=== PATIENT | female | born 1950 ===

== ENCOUNTER 2018-04-14 12:40 | Inpatient (IN) | payer MEDICARE ==
[~2018-04-14] VITALS: Ht 170.2 cm; Wt 59.1 kg
--- NOTE | ~2018-04-14 | DS ---
PATIENT:GASTON MEZA :48 MEDICAL RECORD: [id number] DISCHARGE SUMMARY ADMISSION DATE: 04/14/18 DISCHARGE DATE: 04/15/18 IDENTIFYING DATA: The patient is 67 years old and she was admitted to the hospital on a voluntary basis because of depression. The patient came to the Emergency Room reporting thoughts of harming herself and was subsequently admitted for evaluation. HOSPITAL COURSE: The patient was admitted to the hospital and fully evaluated. She had a very strong family history of bipolar disorder. She was showing symptoms of stevan that are documented in her initial evaluation. She had not responded to numerous trials and combinations of antidepressant medications over the past 30 years. She had never tried to harm herself or others and had never lost contact with reality. She did have pressured speech and an increase in goal-directed activity. The patient was felt to be bipolar and was subsequently treated with lithium. She insisted upon being discharged and was not meeting criteria for an involuntary stay. She was not discharged against medical advice and a decision that was only slightly tilted in that direction. DISCHARGE DIAGNOSES: AXIS I: Bipolar disorder, mixed. AXIS II: Deferred. AXIS III: Hypercholesterolemia. AXIS IV: Moderate stressors. AXIS V: Global assessment of functioning is 55. PLAN: At the time of discharge, the patient was in good behavioral control and had no thoughts of harming herself or others. She was started on lithium with the instructions to have a followup appointment and lithium level with her primary care physician in 1 week. She was also given the names of 2 outpatient psychiatrists with whom I think she should followup. TRANSINT:[id number] Voice Confirmation ID: [id number] DOCUMENT ID: [id number] FIDELINA MONGE MD at 1438 CC: [id number] DICTATION DATE: 04/30/18 1347 SUPERVISOR ERECTION SHOP: 04/30/18 1354 DIS IN 04/15/18 [place] [address]
--- NOTE | ~2018-04-14 | PSY ---
PATIENT NAME:GASTON MEZA MEDICAL RECORD: [id number] : 48 [facility] ADMISSION DATE: 04/14/18 ACCOUNT: [id number] PSYCHIATRIC EVALUATION DATE OF EVALUATION: 04/15/18 IDENTIFYING DATA: The patient is 67 years old and she is admitted to the hospital on a voluntary basis. CHIEF COMPLAINT: Depression. HISTORY OF PRESENT ILLNESS: The patient presented to the Emergency Room yesterday reporting a lifelong history of depression and anxiety. She said that she was work and just simply could not take it anymore and was having some thoughts about killing herself. She even had a plan about how she would do it, which would be to hold a gun to her head and shoot herself. She later retracted that and said she really would not kill herself because she is "a Druze." She endorses numerous neurovegetative depressive symptoms, but then also has some symptoms of mild stevan, specifically not sleeping well and increase in goal-directed activity and inability to complete goals once she started them. 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 She also says that she does not even take a lunch break because she likes working so much. The impression was that it is not a financial necessity, is that she likes to work. She is an automobile insurance claim examiner and very upbeat, outgoing, and talks very rapidly. Again, these are symptoms of stevan in my opinion. She denies any overt psychotic symptoms as well as substance abuse issues. PAST MEDICAL HISTORY: Significant for hypercholesterolemia. PAST PSYCHIATRIC HISTORY: Significant for extensive outpatient treatment dating back several decades. She has been treated on an outpatient basis only and has never been treated on an inpatient basis. FAMILY HISTORY: Significant for bipolar disorder with the patient's mother, brother, and nephew all being institutionalized on multiple occasions and all carrying the diagnosis of bipolar disorder. ALLERGIES: CODEINE AND ERYTHROMYCIN. CURRENT MEDICATIONS: Include Pravachol and Celexa. SOCIAL HISTORY: The patient is . She has no children. She has a history of good social and occupational functioning. She has 3 degrees from [employer]. MENTAL STATUS EXAMINATION: The patient is awake, alert, and oriented to person, place, and somewhat to time and situation. Her mood is flat. Her affect is constricted. Thought processes are circumstantial. Memory, concentration, and abstraction abilities are mildly impaired and she denies any active intent to harm herself or others as well as psychotic symptoms. ASSETS: An ability to make her needs known and express her symptoms accurately. LIABILITIES: Limited insight. DIAGNOSTIC IMPRESSION: AXIS I: Bipolar disorder, mixed. AXIS II: Deferred. AXIS III: Hypercholesterolemia. AXIS IV: Moderate stressors. AXIS V: Global assessment of functioning is 50. PLAN: At this time, the patient is requesting discharge. I have advised her to stay in the hospital and allow me to treat her and better evaluate her symptoms, but she says that the patients on the unit are so ill that it is distressing to her and that she really wants to go home. I do not feel strongly enough about it to discharge her against medical advice and she would then be responsible for the hospital bill and she certainly does not meet current criteria for an involuntary stay, so I am going to let her go. I am going to start her on lithium empirically with the provisional diagnosis of bipolar disorder based on the very strong family history, the symptoms of a mixed bipolar state described above and the fact that no antidepressant medication has ever worked consistently. I think that this is reasonable clinical suspicion that she is bipolar and I am going to treat her with lithium. In addition to that, I am going to recommend that she see an outpatient psychiatrist, I have given her the names of 2 local psychiatrists and I have advised her if that is not feasible that she should go to [facility] where they would be more experienced with refractory cases that are nonresponsive to numerous pharmacologic interventions. The patient is agreeable to this plan. She denies that she would seek to harm herself and says that she will return to the Emergency Room if her symptoms worsen. Her primary care physician will follow up with her initially and I am asking for a lithium level in 1 week. I think the target goal for her lithium level is 0.8 mEq plus or minus 1 or 2 mEq. TRANSINT:[id number] Voice Confirmation ID: [id number] DOCUMENT ID: [id number] FIDELINA MONGE MD at 1650 CC: [id number] DICTATION DATE: 04/15/18 1521 PUBLISHING SPECIALIST: 04/15/18 1548 DIS IN 04/15/18 [facility] [address] [facility] [place] [address]
[2018-04-14] MEDS ORDERED: CELEXA10 MG PO (12:51)
[2018-04-14] MEDS ORDERED: PRAVACHOL20 MG PO (12:51)
[2018-04-14 13:41] LABS: BASOPHILS 0.3 % (0-2); EOSINOPHILS 2.6 % (0-7); HEMATOCRIT 41.9 % (36.0-48.0); HEMOGLOBIN 14.1 g/dL (12-16); IMMATURE GRANULOCYTES 0.2 % (0-5); MCH 31.5 pg (26.0-34.0); MCHC 33.7 g/dL (31.0-37.0); MCV 93.7 fL (80.0-100.0); MEAN PLATELET VOLUME 11.6 fL (7.4-10.4); MONOCYTES 5.2 % (2-11); NEUTROPHILS 62.7 % (40-80); PLATELET COUNT 163 10x3/uL (130-400); RBC 4.47 10x6/uL (4.00-5.40); RDW 12.8 % (11.5-14.5); WBC 6.1 10x3/uL (4.8-10.8)
[2018-04-14 13:56] LABS: ALBUMIN 3.7 g/dL (3.4-5.0); ALKALINE PHOSPHATASE 65 U/L (46-116); ALT (SGPT) 13 U/L (10-68); CALC OSMOLALITY 280 mosm/kg (275-300); CALCIUM 8.6 mg/dL (8.5-10.1); CARBON DIOXIDE 25.6 mmol/L (21.0-32.0); CHLORIDE - SERUM 108 mmol/L (98-107); CREATININE - SERUM 0.8 mg/dL (0.6-1.3); GLUCOSE 103 mg/dL (74-106); POTASSIUM - SERUM 4.2 mmol/L (3.5-5.1); PROTEIN - SERUM 6.5 g/dL (6.4-8.2); SODIUM 141 mmol/L (136-145); UREA NITROGEN 13 mg/dL (7-18); eGFR NON AFRICAN AMERICAN 75 mL/min (90-120)
[2018-04-14 14:06] LABS: THYROID STIMULATING HORMONE 1.85 uIU/mL (0.36-3.74)
[2018-04-14 14:07] LABS: APPEARANCE CLEAR (CLEAR); COLOR YELLOW (YELLOW)
[2018-04-14 14:08] LABS: BILIRUBIN NEGATIVE (NEGATIVE); GLUCOSE NEGATIVE (NEGATIVE); KETONE NEGATIVE (NEGATIVE); NITRITE NEGATIVE (NEGATIVE); PROTEIN NEGATIVE (NEGATIVE); SPECIFIC GRAVITY 1.015 (1.005-1.020); UROBILINOGEN NORMAL (NORMAL)
[2018-04-14 14:12] LABS: UDS - AMPHET NEGATIVE QUAL (NEGATIVE); UDS - BARB NEGATIVE QUAL (NEGATIVE); UDS - BENZO NEGATIVE QUAL (NEGATIVE); UDS - COCAINE NEGATIVE QUAL (NEGATIVE); UDS - OPIATE NEGATIVE QUAL (NEGATIVE); UDS - PCP NEGATIVE QUAL (NEGATIVE); UDS - THC NEGATIVE QUAL (NEGATIVE)
[2018-04-14 14:48] VITALS: BP 129/78
[2018-04-14 19:39] VITALS: BP 115/70
[2018-04-14 22:01] VITALS: BP 151/79; BMI 20.4
[2018-04-15 06:52] LABS: CHOL - HDL RATIO 4.3 ratio (2.3-4.1); LDL-HDL RATIO 2.3 ratio (1.5-3.5); THYROID STIMULATING HORMONE 3.18 uIU/mL (0.36-3.74)
[2018-04-15 09:08] VITALS: BP 107/52; BP 107/53
[2018-04-15] MEDS ORDERED: TOPAMAX100 MG PO (09:56)
[2018-04-15] MEDS ORDERED: ZETIA10 MG PO (09:56)
[2018-04-15 12:48] VITALS: Ht 170.2 cm; Wt 59.1 kg
[2018-04-15] MEDS ORDERED: LITHIUM CARBON300 MG PO (15:22)
[2018-04-16 08:20] LABS: RAPID PLASMA REAGIN Non Reactive (Non Reactive)
[2018-04-16 10:21] LABS: VITAMIN D 25 HYDROXY 18.1 ng/mL (30.0-100.0)
[2018-04-16 11:20] LABS: FOLATE (FOLIC ACID) - SERUM 5.9 ng/mL (>3.0)
== END 2018-04-15 18:10 | disposition home or self-care (01) | DRG 885 ==
LOC: D.ER 12:40 → D.PSYCH 16:51
PROVIDERS: Family Medicine; Psychiatry & Neurology Psychiatry
DX: F31.60 Bipolar disorder, current episode mixed, unspecified (principal); E78.00 Pure hypercholesterolemia, unspecified; E78.5 Hyperlipidemia, unspecified; Z87.891 Personal history of nicotine dependence